=== PATIENT | male | born 1975 | race Caucasian/White ===

== ENCOUNTER 2022-06-12 18:04 | Emergency (ER) | payer OTHER ==
[2022-06-12 18:20] VITALS: BP 110/76; PULSE 94; RESP 16; TEMP 98.5
--- NOTE | 2022-06-12 19:25 | XR ---
EXAMINATION TYPE: XR ankle complete RT DATE OF EXAM: 06/12/2022 COMPARISON: NONE HISTORY: Paraplegia TECHNIQUE: 3 view FINDINGS: There is acute transverse fractures of the distal tibia and fibula. No significant displace ment. Ankle mortise is anatomic. The talus is intact. IMPRESSION: Acute distal tibia and fibula fractures. There is some comminution of the tibial fracture .
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
== END 2022-06-12 20:08 | disposition home or self-care (01) ==
LOC: EC 18:04
DX: S82.221A Displaced transverse fracture of shaft of right tibia, initial encounter for closed fracture (principal); S82.421A Displaced transverse fracture of shaft of right fibula, initial encounter for closed fracture; F17.200 Nicotine dependence, unspecified, uncomplicated; Z88.0 Allergy status to penicillin; V00.818A Other accident with wheelchair (powered), initial encounter
CPT/HCPCS: 29515; 99284

== ENCOUNTER 2022-10-04 13:39 | Emergency (ER) | payer OTHER ==
[2022-10-04 15:24] VITALS: BP 127/82; PULSE 77; RESP 18; TEMP 98.2
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
== END 2022-10-04 18:52 | disposition home or self-care (01) ==
LOC: EC 13:39
DX: Z76.0 Encounter for issue of repeat prescription (principal); F17.200 Nicotine dependence, unspecified, uncomplicated; Z88.0 Allergy status to penicillin
CPT/HCPCS: 99283

== ENCOUNTER 2024-02-07 12:45 | Emergency (ER) | payer OTHER ==
[2024-02-07 13:30] VITALS: BP 123/78; PULSE 75; RESP 18; TEMP 98.6
--- NOTE | 2024-02-07 13:32 | ED ---
General Adult HPI - General Chief complaint: Urogenital Stated complaint: possible UTI Time Seen by Provider: 02/07/24 13:00 Source: patient, RN notes reviewed, old records reviewed Mode of arrival: wheelchair Limitations: no limitations - History of Present Illness Initial comments: This is a 48-year-old male who comes in stating he thinks he has a urinary tract infection. Patient is a paraplegic and does self cathing. Patient states he commonly gets a urinary tract infection. Patient states he can tell usually by the smell and that is what is going on today. Patient states he does not feel any dysuria does not have any abdominal pain. Patient denies any new back pain. Patient has any fever or chills. - Related Data Previous Rx's Medication Instructions Recorded Cephalexin [Keflex] 500 mg PO Q8HR 5 Days #15 cap 06/12/22 Sulfamethox-Tmp 800-160Mg [Bactrim 1 each PO Q12HR #20 tab 02/07/24 DS 800-160 mg] Allergies Allergy/AdvReac Type Severity Reaction Status Date / Time amoxicillin Allergy Unknown Verified 02/07/24 12:59 Review of Systems ROS Statement: Those systems with pertinent positive or pertinent negative responses have been documented in the HPI. ROS Other: All systems not noted in ROS Statement are negative. Past Medical History Past Medical History: Musculoskeletal Disorder Additional Past Medical History / Comment(s): t12/L1 paraplegic History of Any Multi-Drug Resistant Organisms: None Reported Additional Past Surgical History / Comment(s): rods and pins and screws in spine Past Psychological History: No Psychological Hx Reported Smoking Status: Current every day smoker Past Alcohol Use History: None Reported Past Drug Use History: None Reported General Exam - General Exam Comments Initial Comments: GENERAL: Patient is well-developed and well-nourished. Patient is nontoxic and well- hydrated and is in no acute distress. ENT: Neck is soft and supple. No significant lymphadenopathy is noted. Oropharynx is clear. Moist mucous membranes. Neck has full range of motion without eliciting any pain. EYES: The sclera were anicteric and conjunctiva were pink and moist. Extraocular movements were intact and pupils were equal round and reactive to light. Eyelid s were unremarkable. PULMONARY: Unlabored respirations. Good breath sounds bilaterally. No audible rales rhonchi or wheezing was noted. CARDIOVASCULAR: There is a regular rate and rhythm without any murmurs gallops or rubs. ABDOMEN: Soft and nontender with normal bowel sounds. SKIN: Skin is clear with no lesions or rashes and otherwise unremarkable. NEUROLOGIC: Patient is alert and oriented x3. Cranial nerves II through XII are grossly intact. Motor and sensory are also intact. Normal speech, volume and content. Symmetrical smile. MUSCULOSKELETAL: Normal extremities with adequate strength and full range of motion. Patient has no CVA tenderness LYMPHATICS: No significant lymphadenopathy is noted PSYCHIATRIC: Normal psychiatric evaluation. Limitations: no limitations Course Vital Signs 02/07/24 12:57 Temperature 98.6 F Pulse Rate 75 Respiratory 18 Rate Blood Pressure 123/78 O2 Sat by Pulse 97 Oximetry Medical Decision Making - Medical Decision Making Was pt. sent in by a medical professional or institution (, PA, EDUCATION ANALYST, urgent care, hospital, or usp...) When possible be specific @ -No Did you speak to anyone other than the patient for history (EMS, parent, family, police, friend...)? What history was obtained from this source @ -No Did you review nursing and triage notes (agree or disagree)? Why? @ -I reviewed and agree with nursing and triage notes Were old charts reviewed (outside hosp., previous admission, EMS record, old EKG, old radiological studies, urgent care reports/EKG's, usp records)? Report findings @ -No old charts were reviewed Differential Diagnosis (chest pain, altered mental status, abdominal pain women, abdominal pain men, vaginal bleeding, weakness, fever, dyspnea, syncope, headache, dizziness, GI bleed, back pain, seizure, CVA, palpatations, mental health, musculoskeletal)? @ -Urinary tract infection, pyelonephritis, hemorrhagic cystitis, urethritis, this is not an all-inclusive list EKG interpreted by me (3pts min.). @ -As above X-rays interpreted by me (1pt min.). @ -None done CT interpreted by me (1pt min.). @ -None done U/S interpreted by me (1pt. min.). @ -None done What testing was considered but not performed or refused? (CT, X-rays, U/S, labs)? Why? @ -None What meds were considered but not given or refused? Why? @ -None Did you discuss the management of the patient with other professionals (professionals i.e. , PA, EDUCATION ANALYST, lab, RT, psych nurse, drug abuse social worker, morning show host, teacher, health promotion officer, director case management)? Give summary @ -No Was smoking cessation discussed for >3mins.? @ -No Was critical care preformed (if so, how long)? @ -No Were there social determinants of health that impacted care today? How? (Homelessness, low income, unemployed, alcoholism, drug addiction, transportation, low edu. Level, literacy, decrease access to med. care, snf, rehab)? @ -No Was there de-escalation of care discussed even if they declined (Discuss DNR or withdrawal of care, Hospice)? DNR status @ -No What co-morbidities impacted this encounter? (DM, HTN, Smoking, COPD, CAD, Cancer, CVA, ARF, Chemo, Hep., AIDS, mental health diagnosis, sleep apnea, morbi d obesity)? @ -None Was patient admitted / discharged? Hospital course, mention meds given and route , prescriptions, significant lab abnormalities, going to OR and other pertinent info. @ -Patient's urine came back and showed urinary tract infection. I gave the patient 2 g of Rocephin in the emergency department and I will be sending the patient home on Bactrim. I also did a urine culture Undiagnosed new problem with uncertain prognosis? @ -No Drug Therapy requiring intensive monitoring for toxicity (Heparin, Nitro, Insulin, Cardizem)? @ -No Were any procedures done? @ -No Diagnosis/symptom? @ -Urinary tract infection Acute, or Chronic, or Acute on Chronic? @ -Acute Uncomplicated (without systemic symptoms) or Complicated (systemic symptoms)? @ -Complicated Side effects of treatment? @ -No Exacerbation, Progression, or Severe Exacerbation? @ -No Poses a threat to life or bodily function? How? (Chest pain, [place], [place], pneumonia, PE, COPD, DKA, ARF, appy, cholecystitis, CVA, Diverticulitis, Homicidal, Suicidal, threat to staff... and all critical care pts) @ -No - Lab Data Result diagrams: 02/07/24 13:44 02/07/24 13:44 Lab Results 02/07/24 02/07/24 02/07/24 Range/Units 13:44 13:44 13:48 WBC 8.9 (3.8-10.6) k/uL RBC 4.93 (4.30-5.90) m/uL Hgb 14.6 (13.0-17.5) gm/dL Hct 44.3 (39.0-53.0) % MCV 89.8 (80.0-100.0) fL MCH 29.5 (25.0-35.0) pg MCHC 32.9 (31.0-37.0) g/dL RDW 13.2 (11.5-15.5) % Plt Count 204 (150-450) k/uL MPV 8.4 Neutrophils % 66 % Lymphocytes % 25 % Monocytes % 4 % Eosinophils % 2 % Basophils % 1 % Neutrophils # 5.9 (1.3-7.7) k/uL Lymphocytes # 2.3 (1.0-4.8) k/uL Monocytes # 0.4 (0-1.0) k/uL Eosinophils # 0.2 (0-0.7) k/uL Basophils # 0.1 (0-0.2) k/uL Sodium 140 (137-145) mmol/L Potassium 4.5 (3.5-5.1) mmol/L Chloride 109 H (98-107) mmol/L Carbon Dioxide 23 (22-30) mmol/L Anion Gap 8 mmol/L BUN 11 (9-20) mg/dL Creatinine 0.40 L (0.66-1.25) mg/dL Est GFR (CKD-EPI)AfAm >90 (>60 ml/min/1.73 sqM) Est GFR (CKD-EPI)NonAf >90 (>60 ml/min/1.73 sqM) Glucose 94 (74-99) mg/dL Calcium 9.0 (8.4-10.2) mg/dL Total Bilirubin 0.5 (0.2-1.3) mg/dL AST 18 (17-59) U/L ALT 13 (4-49) U/L Alkaline Phosphatase 67 (38-126) U/L Total Protein 7.1 (6.3-8.2) g/dL Albumin 4.3 (3.5-5.0) g/dL Urine Color Colorless Urine Appearance Clear (Clear) Urine pH 7.0 (5.0-8.0) Ur Specific [place] 1.007 (1.001-1.035) Urine Protein Negative (Negative) Urine Glucose (UA) Negative (Negative) Urine Ketones Negative (Negative) Urine Blood Negative (Negative) Urine Nitrite Negative (Negative) Urine Bilirubin Negative (Negative) Urine Urobilinogen <2.0 (<2.0) mg/dL Ur Leukocyte Esterase Large H (Negative) Urine RBC 2 (0-5) /hpf Urine WBC 25 H (0-5) /hpf Ur Squamous Epith Cells <1 (0-4) /hpf Urine Bacteria Few H (None) /hpf Urine Mucus Rare H (None) /hpf Urine Yeast (Budding) Occasional H (None) /hpf Disposition Clinical Impression: Urinary tract infection Disposition: HOME SELF-CARE Condition: Good Instructions (If sedation given, give patient instructions): Urinary Tract Infection in Men (ED) Prescriptions: Sulfamethox-Tmp 800-160Mg [Bactrim DS 800-160 mg] 1 each PO Q12HR #20 tab Is patient prescribed a controlled substance at d/c from ED?: No Referrals: None,Stated [Primary Care Provider] - 1-2 days Time of Disposition: 14:33
[2024-02-07 13:53] LABS: Basophils # (A) 0.1 k/uL (0-0.2); Basophils % (A) 1 %; Eosinophils # (A) 0.2 k/uL (0-0.7); Eosinophils % (A) 2 %; HCT 44.3 % (39.0-53.0); HGB 14.6 gm/dL (13.0-17.5); Lymphocytes # (A) 2.3 k/uL (1.0-4.8); Lymphocytes % (A) 25 %; MCH 29.5 pg (25.0-35.0); MCHC 32.9 g/dL (31.0-37.0); MCV 89.8 fL (80.0-100.0); Mean Platelet Volume 8.4; Monocytes # (A) 0.4 k/uL (0-1.0); Monocytes % (A) 4 %; Neutrophils # (A) 5.9 k/uL (1.3-7.7); Neutrophils % (A) 66 %; Platelet Count 204 k/uL (150-450); RBC 4.93 m/uL (4.30-5.90); RDW 13.2 % (11.5-15.5); WBC 8.9 k/uL (3.8-10.6)
[2024-02-07 14:09] LABS: ALT 13 U/L (4-49); AST 18 U/L (17-59); African American GFR (CKD) >90 (>60 ml/min/1.73 sqM); Albumin 4.3 g/dL (3.5-5.0); Alkaline Phosphatase 67 U/L (38-126); Anion Gap 8 mmol/L; Blood Urea Nitrogen 11 mg/dL (9-20); Carbon Dioxide 23 mmol/L (22-30); Chloride 109 mmol/L (98-107); Glucose 94 mg/dL (74-99); Non-African American GFR(CKD) >90 (>60 ml/min/1.73 sqM); Potassium 4.5 mmol/L (3.5-5.1); Sodium 140 mmol/L (137-145); Total Bilirubin 0.5 mg/dL (0.2-1.3); Total Protein 7.1 g/dL (6.3-8.2)
[2024-02-07 14:10] LABS: Appearance,Urine Clear (Clear); Bacteria,Urine Few /hpf; Bilirubin,Urine Negative (Negative); Blood,Urine Negative (Negative); Budding Yeast,Urine Occasional /hpf; Color,Urine Colorless; Glucose,Urine (UA) Negative (Negative); Ketones,Urine Negative (Negative); Leukocyte Esterase,Urine Large (Negative); Mucus,Urine Rare /hpf; Nitrite,Urine Negative (Negative); Protein,Urine Negative (Negative); RBC,Urine 2 /hpf (0-5); Specific Gravity,Urine 1.007 (1.001-1.035); Squamous Epithelial Cell,Urine <1 /hpf (0-4); Urobilinogen,Urine <2.0 mg/dL (<2.0); WBC,Urine 25 /hpf (0-5)
[2024-02-07] MEDS: cefTRIAXone IN SWFI 1,000 MG/10 ML SYRINGE IVP STA (14:48)
== END 2024-02-07 15:01 | disposition home or self-care (01) ==
LOC: EC 12:45
DX: N39.0 Urinary tract infection, site not specified (principal); F17.200 Nicotine dependence, unspecified, uncomplicated; Z88.0 Allergy status to penicillin
CPT/HCPCS: 99283 ×2; 96374 ×2; 36415; 80053; 85025; 81001; J0696

== ENCOUNTER → 2024-11-12 | Outpatient (CLI) | payer OTHER ==
--- NOTE | 2024-11-12 13:27 | CT ---
EXAMINATION TYPE: CT abdomen pelvis w con CT DLP: 696.9 mGycm, Automated exposure control for dose reduction was used. 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 Coronal and sagittal reformats were performed. FINDINGS: LOWER CHEST: Lingular linear atelectasis. ABDOMEN LIVER: Unremarkable GALLBLADDER AND BILE DUCTS: Unremarkable. PANCREAS: Unremarkable. SPLEEN: Unremarkable. ADRENAL GLANDS: Unremarkable. KIDNEYS AND URETERS: No evidence of hydronephrosis or renal calculus. The kidneys enhance symmetrical ly. Contrast is demonstrated within both collecting systems on the delayed phase. PELVIS BLADDER: Circumferential wall thickening of the urinary bladder measuring up to 9 mm with under diste ntion. No contrast identified within the bladder. Possible tract along the anterosuperior aspect in t he bladder is described below. REPRODUCTIVE: Prostate is enlarged in size measuring 6.0 cm in transverse dimension. ABDOMEN & PELVIS STOMACH AND BOWEL: Stomach and duodenum are unremarkable. Enteric contrast reaches the proximal trans verse colon. No extravasation of contrast. There is a possible tiny tract involving the anterior supe rior aspect of the urinary bladder and the adjacent small bowel (series 9, image 59). No contrast is identified within the tract or urinary bladder. No evidence for colonic vesicular fistula. Circumfere ntial wall thickening of the rectum. No surrounding inflammatory changes. The appendix is within norm al limits. No evidence of bowel obstruction. PERITONEUM: No evidence of pneumoperitoneum or free fluid. VASCULATURE: No evidence of aortic aneurysm. MUSCULOSKELETAL: No acute osseous abnormalities. There are 5 lumbar type vertebral bodies identified. Postsurgical changes of the visualized thoracolumbar spine with fixation hardware spanning T10-L3. R emote appearing fracture involving the L1 vertebral body. Spina bifida occulta at L6. Diffuse atrophy of the pelvic musculature. LYMPH NODES: No evidence for lymphadenopathy. SOFT TISSUE/ABDOMINAL WALL: Tiny fat filled umbilical hernia. IMPRESSION: 1. Questionable enterovesicular fistula however no enteric contrast identified within the tract. Con engineer third assistant further evaluation with cystogram. 2. Circumferential wall thickening of the underdistended urinary bladder. Correlate with urinalysis f or cystitis. 3. Circumferential wall thickening of the rectum. Correlate clinically for proctitis with underlying mass not excluded. [facility], , 11/12/2024 1:24 PM
== END | disposition home or self-care (01) ==
LOC: RADCTMAIN 11:01
PROVIDERS: ATTEND Urology
DX: N32.89 Other specified disorders of bladder (principal); K62.89 Other specified diseases of anus and rectum; N32.1 Vesicointestinal fistula
CPT/HCPCS: 74177; Q9967

== ENCOUNTER 2025-04-02 23:40 | Emergency (ER) | payer OTHER ==
[2025-04-02 23:45] VITALS: RESP 18
--- NOTE | 2025-04-02 23:53 | ED ---
Lower Extremity Injury HPI - General Chief Complaint: Extremity Injury, Lower Stated Complaint: R Leg Injury Time Seen by Provider: 04/02/25 23:52 Source: patient, RN notes reviewed, old records reviewed Mode of arrival: wheelchair Limitations: physical limitation - History of Present Illness Initial Comments: This is a 49-year-old male who from the waist down had leg injury and foot injury today concern for pain or injury to the right ankle, no feeling but he states his ankle looks deformed MD Complaint: ankle injury -: hour(s) Injury: Ankle: Right Type of Injury: blunt Place: home Severity: severe Severity scale (1-10): 8 Context: direct blow Associated Symptoms: swelling Treatments Prior to Arrival: other - Related Data Previous Rx's Medication Instructions Recorded Cephalexin [Keflex] 500 mg PO Q8HR 5 Days #15 cap 06/12/22 Sulfamethox-Tmp 800-160Mg [Bactrim 1 each PO Q12HR #20 tab 02/07/24 DS 800-160 mg] Allergies Allergy/AdvReac Type Severity Reaction Status Date / Time amoxicillin Allergy Unknown Verified 04/02/25 23:45 Review of Systems ROS Statement: Those systems with pertinent positive or pertinent negative responses have been documented in the HPI. ROS Other: All systems not noted in ROS Statement are negative. Past Medical History Past Medical History: Musculoskeletal Disorder Additional Past Medical History / Comment(s): t12/L1 paraplegic History of Any Multi-Drug Resistant Organisms: None Reported Additional Past Surgical History / Comment(s): rods and pins and screws in spine Past Psychological History: No Psychological Hx Reported Smoking Status: Current every day smoker Past Alcohol Use History: None Reported Past Drug Use History: None Reported General Exam Limitations: physical limitation General appearance: alert, in no apparent distress Head exam: Present: atraumatic, normocephalic, normal inspection Eye exam: Present: normal appearance, PERRL, EOMI. Absent: scleral icterus, conjunctival injection, periorbital swelling ENT exam: Present: normal exam, mucous membranes moist Neck exam: Present: normal inspection. Absent: tenderness, meningismus, lymphadenopathy Respiratory exam: Present: normal lung sounds bilaterally. Absent: respiratory distress, wheezes, rales, rhonchi, stridor Cardiovascular Exam: Present: regular rate, normal rhythm, normal heart sounds. Absent: systolic murmur, diastolic murmur, rubs, gallop, clicks GI/Abdominal exam: Present: soft, normal bowel sounds. Absent: distended, tenderness, guarding, rebound, rigid Extremities exam: Present: normal inspection, full ROM, normal capillary refill. Absent: tenderness, pedal edema, joint swelling, calf tenderness Back exam: Present: normal inspection Neurological exam: Present: alert, oriented X3, CN II-XII intact Psychiatric exam: Present: normal affect, normal mood Skin exam: Present: warm, dry, intact, normal color. Absent: rash Course Vital Signs 04/02/25 04/03/25 23:41 02:02 Temperature 97.8 F 98.2 F Pulse Rate 78 73 Respiratory 18 18 Rate Blood Pressure 117/77 124/82 O2 Sat by Pulse 97 96 Oximetry - Reevaluation(s) Reevaluation #1: 04/02/25 23:53 Medical records reviewed Reevaluation #2: 04/04/25 03:44 Patient is in no pain and no distress Reevaluation #3: 04/04/25 03:44 Patient informed of results questions answered Reevaluation #4: Was pt. sent in by a medical professional or institution (, PA, PIPE STRIPPER, urgent care, hospital, or usp...) When possible be specific @ -no Did you speak to anyone other than the patient for history (EMS, parent, family, police, friend...)? What history was obtained from this source @ -no Did you review nursing and triage notes (agree or disagree)? Why? @ -agree Are old charts reviewed (outside hosp., previous admission, EMS record, old EKG, old radiological studies, urgent care reports/EKG's, usp records)? Report findings @ -yes Differential Diagnosis (chest pain, altered mental status, abdominal pain women, abdominal pain men, vaginal bleeding, weakness, fever, dyspnea, syncope, headache, dizziness, GI bleed, back pain, seizure, CVA, palpatations, mental health, musculoskeletal)? @ -prior EKG interpreted by me (3pts min.). @ -yes X-rays interpreted by me (1pt min.). @ -yes negative for acute disease CT interpreted by me (1pt min.). @ -no U/S interpreted by me (1pt. min.). @ -no What testing was considered but not performed or refused? (CT, X-rays, U/S, labs)? Why? @ -none What meds were considered but not given or refused? Why? @ -none Did you discuss the management of the patient with other professionals (professionals i.e. , PA, PIPE STRIPPER, lab, RT, psych nurse, administrator social welfare, senior civil engineer, teacher, court registry officer, immigration case worker)? Give summary @ -no Was smoking cessation discussed for >3mins.? @ -no Was critical care preformed (if so, how long)? @ -no Were there social determinants of health that impacted care today? How? (Homelessness, low income, unemployed, alcoholism, drug addiction, transportation, low edu. Level, literacy, decrease access to med. care, custodial, rehab)? @ -none Was there de-escalation of care discussed even if they declined (Discuss DNR or withdrawal of care, Hospice)? DNR status @ -no What co-morbidities impacted this encounter? (DM, HTN, Smoking, COPD, CAD, Cancer, CVA, ARF, Chemo, Hep., AIDS, mental health diagnosis, sleep apnea, morbid obesity)? @ -none Was patient admitted / discharged? Hospital course, mention meds given and route, prescriptions, significant lab abnormalities, going to OR and other pertinent info. @ - Undiagnosed new problem with uncertain prognosis? @ -no Drug Therapy requiring intensive monitoring for toxicity (Heparin, Nitro, Insulin, Cardizem)? @ -no Were any procedures done? @ -no Diagnosis/symptom? @ - Acute, or Chronic, or Acute on Chronic? @ -Acute Uncomplicated (without systemic symptoms) or Complicated (systemic symptoms)? @ -Complicated Side effects of treatment? @ -no Exacerbation, Progression, or Severe Exacerbation? @ -exacerbation Poses a threat to life or bodily function? How? (Chest pain, [place], [place], pneumonia, PE, COPD, DKA, ARF, appy, cholecystitis, CVA, Diverticulitis, Homicidal, Suicidal, threat to staff... and all critical care pts) @ -yes Medical Decision Making - Medical Decision Making 49 male to ER for evaluation of ankle pain leg pain after injury on his wheelchair, no acute fracture noted patient can be discharged home - Radiology Data Radiology results: report reviewed (X-ray ankle is negative for acute disease), image reviewed Disposition Clinical Impression: Ankle pain, right Disposition: HOME SELF-CARE Instructions (If sedation given, give patient instructions): Ankle Sprain (ED), Foot Contusion (ED) Is patient prescribed a controlled substance at d/c from ED?: No Referrals: Fredis Estrella MD [Primary Care Provider] - 1-2 days Time of Disposition: 01:30
[2025-04-03 02:03] VITALS: BP 124/82; PULSE 73; TEMP 98.2
--- NOTE | 2025-04-03 03:40 | XR ---
EXAM: XR Right Ankle Complete, 3 or More Views CLINICAL HISTORY: PAIN TECHNIQUE: Frontal, lateral and oblique views of the right ankle. COMPARISON: 06/12/2022. FINDINGS: Bones/joints: Deformity of the distal tibial and fibular meta diaphysis with medial angulation consistent with old fractures is seen acutely 06/12/2022. No acute fracture. No dislocation. Ankle mortise is intact. Soft tissues: Unremarkable. IMPRESSION: No acute fracture. Deformity of the distal tibia and fibula with abnormal medial angulation consistent with old fractures.
== END 2025-04-03 02:04 | disposition home or self-care (01) ==
LOC: EC 23:40
DX: M25.571 Pain in right ankle and joints of right foot (principal); F17.200 Nicotine dependence, unspecified, uncomplicated; Z88.0 Allergy status to penicillin
CPT/HCPCS: 99283